=== PATIENT | female | born 1955 | race Caucasian/White ===

== ENCOUNTER 2019-01-12 16:46 | Emergency (ER) | payer OTHER ==
[~2019-01-12] VITALS: Ht 154.9 cm; Wt 68.2 kg
[~2019-01-12 16:46] MED LIST: ALBU8.5H8 IH; ALPR-624 PO; ARIP5TAB4 PO; ASPI-611 PO; ATOR40TA PO; CARV3.122 PO; EST1T PO; GABA-532 PO; HYDR-4353 PO; IBUP-1984 PO; ISOS30TA6 PO; METF500T PO; SERT50TA PO; TRAZ-218 PO; VARE0.5T PO
[2019-01-12] MEDS ORDERED: normal saline 1000ML IV soln IVB ONE (18:25)
[2019-01-12 18:27] LABS: ALANINE AMINOTRANSFERASE 18 U/L (12-78); ALBUMIN 3.8 G/DL (3.4-5.0); ALKALINE PHOSPHATASE 78 IU/L (46-116); ANION GAP 10 (8-16); ASPARTATE AMINO TRANSFERASE 12 U/L (10-37); BILIRUBIN,TOTAL 0.7 MG/DL (0.1-1.0); BLOOD UREA NITROGEN 16 MG/DL (7-18); CALCIUM 9.2 MG/DL (8.5-10.1); CHLORIDE 102 MMOL/L (99-107); CREATININE 0.84 MG/DL (0.40-0.90); GLUCOSE 113 MG/DL (70-104); SODIUM 138 MMOL/L (135-145); TOTAL CARBON DIOXIDE 26.4 MMOL/L (24-32); TOTAL PROTEIN 7.5 G/DL (6.4-8.2); eGFR 68 ML/MIN
[2019-01-12 18:41] LABS: BASOPHILS # (AUTO) 0.1 X10'3 (0-0.2); EOSINOPHILS # (AUTO) 0.2 X10'3 (0-0.9); EOSINOPHILS % (AUTO) 1.9 % (0-6); HEMATOCRIT 43.3 % (35.0-45.0); HEMOGLOBIN 14.8 g/dl (12.0-16.0); LYMPHOCYTES # (AUTO) 3.2 X10'3 (1.1-4.8); LYMPHOCYTES % (AUTO) 32.7 % (21-51); MEAN CORPUSCULAR HEMOGLOBIN 28.5 PG (27.0-31.0); MEAN CORPUSCULAR HGB CONC 34.3 g/dL (33.0-36.5); MEAN CORPUSCULAR VOLUME 83.3 FL (78-98); MEAN PLATELET VOLUME 9.8 FL (7.4-10.4); MONOCYTES # (AUTO) 0.7 X10'3 (0-0.9); MONOCYTES % (AUTO) 6.9 % (2-12); NEUTROPHILS # (AUTO) 5.6 X10'3 (1.8-7.7); NEUTROPHILS % (AUTO) 57.5 % (42-75); PLATELET COUNT 320 X10'3 (140-440); RED CELL DISTRIBUTION WIDTH 13.5 % (11.5-14.5); WHITE BLOOD COUNT 9.7 X10'3 (4.5-11.0)
[2019-01-12 19:02] LABS: PROTHROMBIN TIME 10.2 SECONDS (9.0-12.0)
[2019-01-12 19:32] LABS: CLARITY,URINE CLEAR (Clear); COLOR,URINE STRAW (Yellow); GLUCOSE, URINE NEGATIVE (Neg); KETONES,URINE NEGATIVE (Neg); LEUKOCYTE ESTERASE ,URINE NEGATIVE (Neg); NITRITES, URINE NEGATIVE (Neg); OCCULT BLOOD,URINE NEGATIVE (Neg); PH,URINE 5.5 (4.8-8.0); PROTEIN,URINE NEGATIVE (Neg); URINE AMPHETAMINE SCREEN NEGATIVE (Neg); URINE BARBITUATE SCREEN NEGATIVE (Neg); URINE BENZODIAZEPINES SCREEN NEGATIVE (Neg); URINE CANNABINOID SCREEN NEGATIVE (Neg); URINE COCAINE SCREEN NEGATIVE (Neg); URINE METHADONE SCREEN NEGATIVE (Neg); URINE OPIATE SCREEN NEGATIVE (Neg); URINE PHENCYCLIDINE SCREEN NEGATIVE (Neg); UROBILINOGEN,URINE 0.2 E.U/dL (0.2-1.0)
[2019-01-12 19:36] LABS: UA COLLECTION TYPE OTHER
--- NOTE | 2019-01-12 20:28 | NUR ---
Pt's family just brought her taco [employer]ru[employer]. Per sara robertson ok for pt to eat.
--- NOTE | 2019-01-12 21:28 | NUR ---
SOC CALLED FOR PSYCH COSULT. SOC MONITOR IN ROOM AND SET UP. FAMILY REMAINS AT BEDSIDE.
--- NOTE | 2019-01-12 21:59 | NUR ---
pt taken to br, ambulating with slow but steady gait. pt stopping along the way to state " i already did this" i think referring to ging to br aprox one hr ago. i asked if she needed to go again and she did not answer. when in br pt voided a small amt. pt cued and assisted to wipe herself and to wash hands and is uncoordinated trying to grab things and throwing away her garbage. son remains at bedside. awaiting SOC Tele Psych
[2019-01-12] MEDS ORDERED: UNABLE TO OBTAIN (22:07)
--- NOTE | 2019-01-12 23:03 | NUR ---
soc calling for report for tele psych consult. md to call back shortly. son at bedside
--- NOTE | 2019-01-12 23:55 | NUR ---
pt moved from main er bed 3 to overflow bed 24
--- NOTE | 2019-01-12 23:59 | NUR ---
Presley durant in [facility] - 01/13/19 at 0116 by [facility] TELEPSYCH TERI [id number]
[2019-01-13] MEDS ORDERED: ALPRAZolam 0.5mg tablet PO ONE (00:10)
--- NOTE | 2019-01-13 01:16 | NUR ---
telepsych recommends [phone]
[2019-01-13] MEDS ORDERED: OLANZapine **IM** 10 mg inj. IM ONE (01:25)
--- NOTE | 2019-01-13 03:21 | NUR ---
patient is now up and although she redirects easily, she intends to wander the unit.
[2019-01-13 05:55] VITALS: BP 142/91
--- NOTE | 2019-01-13 08:48 | NUR ---
PT ASKING FOR MEDICATION FOR ANXIETY, STATES THAT SHE IS FEELING ANXIOUS. AFTER ASKING FOR MEDICATION PT LIED BACK IN BED AND FELL ASLEEP.
--- NOTE | 2019-01-13 11:21 | NUR ---
PT H DAUGHTER VISITING. PT IS IN BED CONVERSING WITH DAUGHTER, GIVEN APPLE SAUCE SNACK.
== END 2019-01-13 12:12 ==
LOC: ER 16:48
DX: F23 Brief psychotic disorder (principal); F22 Delusional disorders; R41.0 Disorientation, unspecified; I10 Essential (primary) hypertension; E11.9 Type 2 diabetes mellitus without complications; M19.90 Unspecified osteoarthritis, unspecified site; G89.29 Other chronic pain; F41.9 Anxiety disorder, unspecified; F32.9 Major depressive disorder, single episode, unspecified; Z56.0 Unemployment, unspecified; Z79.82 Long term (current) use of aspirin; Z79.899 Other long term (current) drug therapy
CPT/HCPCS: 36415; 70450; 80053; 80305; 80320; 81003; 82948; 85025; 85610; 93005; 96360; 99284; J7030

== ENCOUNTER 2020-08-09 08:55 | Outpatient (CLI) | payer MEDICARE, OTHER ==
[~2020-08-09 08:55] MED LIST changes: +ARIP5TAB14 PO; -ARIP5TAB4 PO; -TRAZ-218 PO; +TRAZ-251 PO; +UNABLE TO OBTAIN
== END 2020-08-09 23:59 | disposition home or self-care (01) ==
LOC: RAD 08:55
PROVIDERS: ATTEND Nurse Practitioner Family
DX: N28.1 Cyst of kidney, acquired (principal)
CPT/HCPCS: 76700

== ENCOUNTER 2020-11-16 13:33 | Outpatient (CLI) | payer MEDICARE, OTHER | END 2020-11-16 23:59 | disposition home or self-care (01) | LOC: RAD 13:33 | DX: R47.01 Aphasia (principal); R13.11 Dysphagia, oral phase | CPT/HCPCS: 74230 ==

== ENCOUNTER 2022-01-10 17:44 | Emergency (ER) | payer MEDICARE, OTHER ==
[~2022-01-10] VITALS: Ht 162.6 cm; Wt 67.0 kg
[~2022-01-10 17:44] MED LIST changes: +ALBU8.5H17 IH; -ALBU8.5H8 IH; -ARIP5TAB14 PO; -ASPI-611 PO; -ATOR40TA PO; -CARV3.122 PO; +DULO60CA65 PO; -GABA-532 PO; +GLIM1TAB6 PO; -HYDR-4353 PO; -IBUP-1984 PO; -ISOS30TA6 PO; +PER5325T PO; -SERT50TA PO; -UNABLE TO OBTAIN; -VARE0.5T PO
[2022-01-10 18:02] VITALS: BP 181/76
[2022-01-10 22:52] LABS: EOSINOPHILS # (AUTO) 0.1 X10'3 (0-0.9); MEAN PLATELET VOLUME 8.8 FL (7.4-10.4); MONOCYTES # (AUTO) 0.5 X10'3 (0-0.9); NEUTROPHILS # (AUTO) 4.3 X10'3 (1.8-7.7); PLATELET COUNT 397 X10'3 (140-440); RED BLOOD COUNT 4.89 X10'6 (4.20-5.60)
[2022-01-10 22:54] LABS: BASOPHILS # (AUTO) 0.1 X10'3 (0-0.2); BASOPHILS % (AUTO) 1.3 % (0-1); EOSINOPHILS % (AUTO) 1.1 % (0-6); HEMATOCRIT 42.4 % (35.0-45.0); HEMOGLOBIN 14.3 g/dl (12.0-16.0); LYMPHOCYTES # (AUTO) 3.4 X10'3 (1.1-4.8); LYMPHOCYTES % (AUTO) 40.4 % (21-51); MEAN CORPUSCULAR HEMOGLOBIN 29.3 PG (27.0-31.0); MEAN CORPUSCULAR HGB CONC 33.7 g/dL (33.0-36.5); MEAN CORPUSCULAR VOLUME 86.7 FL (78-98); MONOCYTES % (AUTO) 6.2 % (2-12); RED CELL DISTRIBUTION WIDTH 13.5 % (11.5-14.5); WHITE BLOOD COUNT 8.5 X10'3 (4.5-11.0)
[2022-01-10 23:04] LABS: ALANINE AMINOTRANSFERASE 15 U/L (12-78); ALBUMIN 3.6 G/DL (3.4-5.0); ALKALINE PHOSPHATASE 86 IU/L (46-116); ANION GAP 11 (8-16); ASPARTATE AMINO TRANSFERASE 9 U/L (10-37); BILIRUBIN,TOTAL 0.8 MG/DL (0.1-1.0); BLOOD UREA NITROGEN 14 MG/DL (7-18); BUN/CREATININE RATIO 19.7 (6.6-38.0); CHLORIDE 109 MMOL/L (99-107); CREATININE 0.71 MG/DL (0.40-0.90); GLUCOSE 185 MG/DL (70-104); POTASSIUM 3.6 MMOL/L (3.5-5.1); SODIUM 145 MMOL/L (135-145); TOTAL CARBON DIOXIDE 24.9 MMOL/L (24-32); TOTAL PROTEIN 7.2 G/DL (6.4-8.2); eGFR 82 ML/MIN
--- NOTE | 2022-01-10 23:36 | NUR ---
NOT IN LOBBY.
== END 2022-01-11 00:53 | disposition left against medical advice (07) ==
LOC: ER 17:45
DX: K59.00 Constipation, unspecified (principal); Z53.21 Procedure and treatment not carried out due to patient leaving prior to being seen by health care provider
CPT/HCPCS: 36415; 74018; 80053; 85025

== ENCOUNTER 2022-01-15 17:43 | Emergency (ER) | payer MEDICARE, OTHER ==
[~2022-01-15] VITALS: Ht 162.6 cm; Wt 72.7 kg
[2022-01-15] MEDS ORDERED: normal saline 1000ML IV soln IVB ONE (18:10)
[2022-01-15 18:46] LABS: BASOPHILS # (AUTO) 0.1 X10'3 (0-0.2); BASOPHILS % (AUTO) 1.8 % (0-1); EOSINOPHILS # (AUTO) 0.1 X10'3 (0-0.9); EOSINOPHILS % (AUTO) 1.9 % (0-6); HEMATOCRIT 39.9 % (35.0-45.0); HEMOGLOBIN 13.5 g/dl (12.0-16.0); LYMPHOCYTES # (AUTO) 2.7 X10'3 (1.1-4.8); LYMPHOCYTES % (AUTO) 36.3 % (21-51); MEAN CORPUSCULAR HEMOGLOBIN 29.2 PG (27.0-31.0); MEAN CORPUSCULAR HGB CONC 33.7 g/dL (33.0-36.5); MEAN CORPUSCULAR VOLUME 86.6 FL (78-98); MEAN PLATELET VOLUME 8.8 FL (7.4-10.4); MONOCYTES # (AUTO) 0.4 X10'3 (0-0.9); MONOCYTES % (AUTO) 5.6 % (2-12); NEUTROPHILS % (AUTO) 54.4 % (42-75); PLATELET COUNT 356 X10'3 (140-440); RED BLOOD COUNT 4.61 X10'6 (4.20-5.60); RED CELL DISTRIBUTION WIDTH 12.8 % (11.5-14.5); WHITE BLOOD COUNT 7.4 X10'3 (4.5-11.0)
[2022-01-15 19:13] LABS: ALANINE AMINOTRANSFERASE 12 U/L (12-78); ALBUMIN 3.3 G/DL (3.4-5.0); ALKALINE PHOSPHATASE 75 IU/L (46-116); ANION GAP 15 (8-16); ASPARTATE AMINO TRANSFERASE 11 U/L (10-37); BILIRUBIN,TOTAL 0.7 MG/DL (0.1-1.0); BLOOD UREA NITROGEN 16 MG/DL (7-18); BUN/CREATININE RATIO 26.2 (6.6-38.0); CALCIUM 8.4 MG/DL (8.5-10.1); CHLORIDE 109 MMOL/L (99-107); CREATININE 0.61 MG/DL (0.40-0.90); GLUCOSE 156 MG/DL (70-104); POTASSIUM 3.9 MMOL/L (3.5-5.1); SODIUM 145 MMOL/L (135-145); TOTAL CARBON DIOXIDE 21.4 MMOL/L (24-32); TOTAL PROTEIN 6.6 G/DL (6.4-8.2); eGFR > 90 ML/MIN
[2022-01-15 19:15] LABS: LIPASE 71 U/L (73-393)
[2022-01-15 19:46] LABS: CLARITY,URINE CLEAR (Clear); COLOR,URINE YELLOW (Yellow); GLUCOSE, URINE NEGATIVE (Neg); KETONES,URINE TRACE mg/dl (Neg); LEUKOCYTE ESTERASE ,URINE NEGATIVE (Neg); NITRITES, URINE NEGATIVE (Neg); OCCULT BLOOD,URINE NEGATIVE (Neg); PROTEIN,URINE NEGATIVE (Neg); UROBILINOGEN,URINE 0.2 E.U/dL (0.2-1.0)
[2022-01-15 19:50] LABS: UA COLLECTION TYPE CLN CATCH MIDSTREAM
[2022-01-15] MEDS ORDERED: POLY17PO10 PO (22:12)
[2022-01-15] MEDS ORDERED: MUPI22OI30 TOP (22:12)
[2022-01-15 22:21] VITALS: BP 125/83
== END 2022-01-15 22:25 | disposition home or self-care (01) ==
LOC: ER 17:44
DX: K59.00 Constipation, unspecified (principal); R51.9 Headache, unspecified; R41.0 Disorientation, unspecified; J34.89 Other specified disorders of nose and nasal sinuses; F03.90 Unspecified dementia, unspecified severity, without behavioral disturbance, psychotic disturbance, mood disturbance, and anxiety; I10 Essential (primary) hypertension; E11.9 Type 2 diabetes mellitus without complications; M19.90 Unspecified osteoarthritis, unspecified site; G89.29 Other chronic pain; Z87.440 Personal history of urinary (tract) infections; Z56.0 Unemployment, unspecified; Z91.041 Radiographic dye allergy status; Z79.2 Long term (current) use of antibiotics; Z79.899 Other long term (current) drug therapy
CPT/HCPCS: 36415; 80053; 81003; 83690; 85025; 96360; 96361; 99285; J7030; 99284

== ENCOUNTER 2022-01-16 19:42 | Emergency (ER) | payer MEDICARE, OTHER ==
[~2022-01-16] VITALS: Ht 162.6 cm; Wt 72.7 kg
[~2022-01-16 19:42] MED LIST changes: +MUPI22OI30 TOP; +POLY17PO10 PO
[2022-01-16 19:58] VITALS: BP 164/103
--- NOTE | 2022-01-16 22:49 | NUR ---
not in lobby
--- NOTE | 2022-01-16 23:04 | NUR ---
not in lobby
== END 2022-01-16 23:05 | disposition left against medical advice (07) ==
LOC: ER 19:43
DX: K59.00 Constipation, unspecified (principal); Z53.21 Procedure and treatment not carried out due to patient leaving prior to being seen by health care provider

== ENCOUNTER 2022-01-23 17:01 | Emergency (ER) | payer MEDICARE, OTHER ==
[~2022-01-23] VITALS: Ht 162.6 cm; Wt 72.7 kg
[2022-01-23 17:23] LABS: BASOPHILS % (AUTO) 0.6 % (0-1); EOSINOPHILS # (AUTO) 0.1 X10'3 (0-0.9); EOSINOPHILS % (AUTO) 1.7 % (0-6); HEMATOCRIT 40.7 % (35.0-45.0); HEMOGLOBIN 13.8 g/dl (12.0-16.0); LYMPHOCYTES # (AUTO) 2.3 X10'3 (1.1-4.8); LYMPHOCYTES % (AUTO) 37.9 % (21-51); MEAN CORPUSCULAR HEMOGLOBIN 29.4 PG (27.0-31.0); MEAN CORPUSCULAR HGB CONC 33.8 g/dL (33.0-36.5); MEAN CORPUSCULAR VOLUME 86.9 FL (78-98); MEAN PLATELET VOLUME 8.6 FL (7.4-10.4); MONOCYTES # (AUTO) 0.4 X10'3 (0-0.9); MONOCYTES % (AUTO) 6.1 % (2-12); NEUTROPHILS # (AUTO) 3.3 X10'3 (1.8-7.7); NEUTROPHILS % (AUTO) 53.7 % (42-75); PLATELET COUNT 341 X10'3 (140-440); RED BLOOD COUNT 4.69 X10'6 (4.20-5.60); RED CELL DISTRIBUTION WIDTH 13.3 % (11.5-14.5); WHITE BLOOD COUNT 6.1 X10'3 (4.5-11.0)
[2022-01-23 17:37] LABS: ALANINE AMINOTRANSFERASE 23 U/L (12-78); ALBUMIN 3.2 G/DL (3.4-5.0); ALKALINE PHOSPHATASE 67 IU/L (46-116); ANION GAP 13 (8-16); ASPARTATE AMINO TRANSFERASE 8 U/L (10-37); BILIRUBIN,TOTAL 0.6 MG/DL (0.1-1.0); BLOOD UREA NITROGEN 15 MG/DL (7-18); BUN/CREATININE RATIO 16.7 (6.6-38.0); CALCIUM 8.5 MG/DL (8.5-10.1); CHLORIDE 106 MMOL/L (99-107); GLUCOSE 215 MG/DL (70-104); LIPASE 95 U/L (73-393); POTASSIUM 3.6 MMOL/L (3.5-5.1); SODIUM 141 MMOL/L (135-145); TOTAL CARBON DIOXIDE 22.3 MMOL/L (24-32); TOTAL PROTEIN 6.3 G/DL (6.4-8.2); eGFR 62 ML/MIN
[2022-01-23 19:34] VITALS: BP 128/72
[2022-01-23] MEDS ORDERED: normal saline 1000ML IV soln IVB ONE (20:10)
[2022-01-23 22:11] LABS: CLARITY,URINE CLEAR (Clear); COLOR,URINE YELLOW (Yellow); GLUCOSE, URINE NEGATIVE (Neg); KETONES,URINE NEGATIVE (Neg); LEUKOCYTE ESTERASE ,URINE TRACE (Neg); NITRITES, URINE NEGATIVE (Neg); OCCULT BLOOD,URINE NEGATIVE (Neg); PH,URINE 5.5 (4.8-8.0); PROTEIN,URINE NEGATIVE (Neg); UROBILINOGEN,URINE 0.2 E.U/dL (0.2-1.0)
[2022-01-23 22:12] LABS: UA COLLECTION TYPE STRAIGHT CATH
[2022-01-23 22:21] LABS: BACTERIA,URINE FEW /HPF (Neg); RBC,URINE 0-2 /HPF (0-2); SQUAMOUS EPITHELIAL CELL,UR FEW /LPF (FEW); WBC,URINE 0-4 /HPF (0-4)
[2022-01-23 22:22] LABS: MUCUS STRANDS NONE SEEN /LPF (Neg)
== END 2022-01-23 23:16 | disposition home or self-care (01) ==
LOC: ER 17:01
DX: K59.00 Constipation, unspecified (principal); I10 Essential (primary) hypertension; E11.9 Type 2 diabetes mellitus without complications; M19.90 Unspecified osteoarthritis, unspecified site; G89.29 Other chronic pain; F41.9 Anxiety disorder, unspecified; F32.A Depression, unspecified; Z87.440 Personal history of urinary (tract) infections; Z56.0 Unemployment, unspecified; Z88.8 Allergy status to other drugs, medicaments and biological substances; Z79.899 Other long term (current) drug therapy
CPT/HCPCS: 36415; 74176; 80053; 81001; 83690; 85025; 87088; 99284; J7030